=== PATIENT | female | born 1945 | race African-American/Black ===

== ENCOUNTER 2024-08-13 12:38 | Emergency (ER) | payer OTHER ==
[~2024-08-13] VITALS: Ht 167.6 cm; Wt 75.0 kg
[2024-08-13 12:59] VITALS: BP 142/84; PULSE 90; RESP 20; O2SAT 98
== END 2024-08-13 19:04 | disposition home or self-care (01) ==
LOC: ER 12:38
DX: R10.9 Unspecified abdominal pain (principal); Z53.21 Procedure and treatment not carried out due to patient leaving prior to being seen by health care provider
CPT/HCPCS: 74176

== ENCOUNTER 2024-08-14 08:38 | Emergency (ER) | payer OTHER ==
[~2024-08-14] VITALS: Ht 167.6 cm; Wt 77.1 kg
[2024-08-14 08:39] VITALS: BP 183/97; PULSE 107; RESP 18; O2SAT 99
== END 2024-08-14 10:47 | disposition home or self-care (01) ==
LOC: ER 08:38
DX: R10.11 Right upper quadrant pain (principal); R10.31 Right lower quadrant pain; R07.81 Pleurodynia; Z98.890 Other specified postprocedural states; W18.39XA Other fall on same level, initial encounter; Y93.89 Activity, other specified; Y92.89 Other specified places as the place of occurrence of the external cause; Y99.8 Other external cause status